=== PATIENT | female | born 1975 | race Caucasian/White ===

== ENCOUNTER 2018-11-26 13:52 | Emergency (ER) | payer OTHER, SELFPAY ==
[2018-11-26 13:56] VITALS: BP 126/88; PULSE 112; RESP 18; TEMP 37.4; O2SAT 100
--- NOTE | 2018-11-26 14:02 | ED.ABDPAIN ---
HPI - Abdominal Pain <FRANCOIS Anglin - Last Filed: 11/26/18 22:02> General Chief Complaint: Abdominal Pain Stated Complaint: doctor wants to R/O diverticulitis Time Seen by Provider: 11/26/18 14:02 Source: patient Mode of arrival: ambulatory Limitations: no limitations History of Present Illness HPI narrative: 43-year-old healthy female that is a nonsmoker for complaint of pain into her abdomen over the past 4-5 days. Pain is above her umbilicus and does not radiate. She denies any trauma to the area. No nausea vomiting. Positive p.o. intake. She does report having a decreased appetite however though. Last bowel movement was earlier today and was loose. She denies any urinary symptoms. No flank pain. No other concerns or complaints this timeframe. Related Data Home Medications Medication Instructions Recorded Confirmed acetaminophen [Acetaminophen Extra 500 mg PO Q4H PRN 11/26/18 11/26/18 Strength] Allergies Allergy/AdvReac Type Severity Reaction Status Date / Time No Known Drug Allergies Allergy Verified 11/26/18 13:58 Review of Systems <FRANCOIS Anglin - Last Filed: 11/26/18 22:02> Constitutional Denies chills, Denies fever(s), Denies lethargy and Denies weakness Eyes Denies change in vision, Denies eye discharge, Denies irritation and Denies loss of vision ENT Ears, Nose, Mouth, and Throat: Denies change in voice, Denies neck pain and Denies sore throat Cardiovascular Denies chest pain, Denies irregular heart rhythm, Denies lightheadedness, Denies palpitations, Denies dyspnea, Denies dyspnea on exertion and Denies orthopnea Respiratory Denies cough, Denies dyspnea, Denies dyspnea on exertion and Denies wheezing Gastrointestinal Gastrointestinal: Reports abdominal pain Genitourinary Denies hematuria, Denies flank pain, Denies urinary incontinence and Denies urinary urgency Musculoskeletal Denies neck pain Integumentary/Breasts Denies pruritus, Denies erythema, Denies rash and Denies wounds Neurologic Denies confusion, Denies loss of vision and Denies weakness Psychiatric Denies anxiety, Denies confusion, Denies depression, Denies homicidal ideation and Denies suicidal ideation Endocrine Denies palpitations Hematologic/Lymphatic Denies easy bruising Allergic/Immunologic Denies wheezing Exam <FRANCOIS Anglin - Last Filed: 11/26/18 22:02> Initial Vital Signs Initial Vital Signs: Vital Signs Temperature 99.4 F 11/26/18 13:56 Pulse Rate 112 H 11/26/18 13:56 Respiratory Rate 18 11/26/18 13:56 Blood Pressure 126/88 11/26/18 13:56 Pulse Oximetry 100 11/26/18 13:56 Const General: cooperative and well developed Nutritional Appearance: well nourished Orientation: alert, awake, oriented x3 and not confused HENPR Mouth: oral mucosae normal and mucous membranes abnormal Eyes Conjunctivae: conjunctivae normal Sclera: sclerae normal Pupils: PERRL EOM: EOM intact bilaterally Resp Effort & Inspection: normal respiratory effort, able to speak in complete sentences, no respiratory distress and no use of accessory muscles Auscultation: clear to auscultation bilaterally, no rales, no rhonchi and no wheezes Cardio Rate: regular rate Rhythm: regular rhythm Heart Sounds: no click, no gallops, no murmurs and no rubs Pulses: normal peripheral pulses GI Inspection: non-distended Palpation: soft, no hepatosplenomegaly, No guarding, No pulsatile mass and No tender Auscultation: normal bowel sounds General: No CVA tenderness Neuro General: alert, oriented x3, gait normal and no focal motor deficits Speech: speech normal <Gala Solis DO - Last Filed: 11/30/18 18:57> Initial Vital Signs Initial Vital Signs: Vital Signs Temperature 99.4 F 11/26/18 13:56 Pulse Rate 112 H 11/26/18 13:56 Respiratory Rate 18 11/26/18 13:56 Blood Pressure 126/88 11/26/18 13:56 Pulse Oximetry 100 11/26/18 13:56 Course <FRANCOIS Anglin - Last Filed: 11/26/18 22:02> Orders Ordered: Discontinued Medications Sodium Chloride (Normal Saline 0.9%) 500 mls @ 1,000 mls/hr IV BOLUS ONE Stop: 11/26/18 14:56 Last Admin: 11/26/18 14:45 Dose: Sodium Chloride (Normal Saline 0.9%) 1,000 mls @ 1,000 mls/hr IV BOLUS ONE Stop: 11/26/18 15:43 Last Infusion: 11/26/18 16:04 Dose: 0 mls/hr Admin: 11/26/18 14:45 Dose: 1,000 mls/hr Sodium Chloride (Normal Saline 0.9%) 1,000 mls @ 1,000 mls/hr IV BOLUS ONE Stop: 11/26/18 17:45 Last Infusion: 11/26/18 17:56 Dose: 0 mls/hr Admin: 11/26/18 16:49 Dose: 1,000 mls/hr Ketorolac Tromethamine (Toradol) 30 mg IV NOW ONE Stop: 11/26/18 16:47 Last Admin: 11/26/18 16:49 Dose: 30 mg Vital Signs - 8 hr 11/26/18 15:55 11/26/18 16:49 11/26/18 16:53 Temperature 102.1 F H 102.1 F H Pulse Rate 113 H 107 H Respiratory Rate 17 18 Blood Pressure Blood Pressure [Left Arm] 105/68 111/98 H Pulse Oximetry 100 100 11/26/18 17:26 11/26/18 17:56 Temperature 101.1 F H Pulse Rate 104 H Respiratory Rate 15 Blood Pressure 115/72 Blood Pressure [Left Arm] Pulse Oximetry 99 <Gala Solis, - Last Filed: 11/30/18 18:57> Orders Ordered: Discontinued Medications Sodium Chloride (Normal Saline 0.9%) 500 mls @ 1,000 mls/hr IV BOLUS ONE Stop: 11/26/18 14:56 Last Admin: 11/26/18 14:45 Dose: Sodium Chloride (Normal Saline 0.9%) 1,000 mls @ 1,000 mls/hr IV BOLUS ONE Stop: 11/26/18 15:43 Last Infusion: 11/26/18 16:04 Dose: 0 mls/hr Admin: 11/26/18 14:45 Dose: 1,000 mls/hr Sodium Chloride (Normal Saline 0.9%) 1,000 mls @ 1,000 mls/hr IV BOLUS ONE Stop: 11/26/18 17:45 Last Infusion: 11/26/18 17:56 Dose: 0 mls/hr Admin: 11/26/18 16:49 Dose: 1,000 mls/hr Ketorolac Tromethamine (Toradol) 30 mg IV NOW ONE Stop: 11/26/18 16:47 Last Admin: 11/26/18 16:49 Dose: 30 mg Vital Signs - 8 hr 11/26/18 15:55 11/26/18 16:49 11/26/18 16:53 Temperature 102.1 F H 102.1 F H Pulse Rate 113 H 107 H Respiratory Rate 17 18 Blood Pressure Blood Pressure [Left Arm] 105/68 111/98 H Pulse Oximetry 100 100 11/26/18 17:26 11/26/18 17:56 Temperature 101.1 F H Pulse Rate 104 H Respiratory Rate 15 Blood Pressure 115/72 Blood Pressure [Left Arm] Pulse Oximetry 99 MDM - Abdominal Pain <FRANCOIS Anglin - Last Filed: 11/26/18 22:02> Differential Diagnosis Differential diagnosis: Likely abdominal pain Lab Data Result diagrams: 11/26/18 14:40 11/26/18 14:40 Lab Results 11/26/18 11/26/18 Range/Units 14:40 14:40 WBC 5.2 (4.5-11.0) X10^3/uL RBC 4.86 (4.0-5.2) X10^6/uL Hgb 13.9 (12.0-16.0) g/dL Hct 41.2 (36-46) % MCV 84.8 (80-100) fL MCH 28.6 (26-34) PG MCHC 33.8 (30-36) % RDW 13.7 (11.6-14.8) % Plt Count 234 (150-400) X10^3/uL Neut % (Auto) 76.3 H (50-75) % Lymph % (Auto) 12.9 L (25-40) % [place] % (Auto) 10.2 (3-14) % Eos % (Auto) 0.1 L (2-4) % Baso % (Auto) 0.5 (0-2) % Neut # (Auto) 4000 (2117-7598) /uL Lymph # (Auto) 700 L (0879-2418) /uL [place] # (Auto) 500 (0-900) /uL Eos # (Auto) 0 (0-450) /uL Baso # (Auto) 0 (0-100) /uL Sodium 137 (137-145) mmol/L Potassium 3.3 L (3.4-5.1) mmol/L Chloride 101 (98-107) mmol/L Carbon Dioxide 26 (22-32) mmol/L BUN 9 (7-17) mg/dL Creatinine 0.60 (0.52-1.04) mg/dL Estimated GFR > 60.0 (>60) mL/min BUN/Creatinine Ratio 15.0 (6-22) Glucose 93 (70-100) mg/dL Calcium 9.0 (8.4-10.2) mg/dL Total Bilirubin 0.4 (0.2-1.3) mg/dL AST 27 (14-36) IU/L ALT 27 (9-52) IU/L Alkaline Phosphatase 77 (38-126) U/L Total Protein 7.4 (6.3-8.2) g/dL Albumin 4.3 (3.5-5.0) g/dL Globulin 3.1 (1.7-4.1) g/dL Albumin/Globulin Ratio 1.4 (1.0-2.8) Lipase 70 (23-300) U/L Point of care testing: Urine Dip Bedside Urine Glucose Negative Bedside Urine Bilirubin - Negative Bedside Urine Ketone + 15 Urine Specific Chambers 1.010 Bedside Urine Protein +/- 15 Bedside Urine Urobilinogen - Negative Bedside Urine Nitrite - Negative Bedside Urine Leukocytes - Negative Esterase Imaging Data CT scan - abdomen: Radiologist's impression: [facility] [place] [id number] CT Scan Report Signed Patient: Laura Cunningham#: [id number] : 1975Acct:[id number] Age/Sex: 43 / FDate of Service: 11/26/18 Loc: ED Accession Number: [id number] Procedure: CT abdomen pelvis w con Ordering Provider: Erick Garg PROCEDURE: CT ABDOMEN PELVIS W CON INDICATIONS: Pain to umbilical area TECHNIQUE: After the administration of intravenous contrast, 5 mm thick sections acquired from the diaphragm to the symphysis. 5 mm coronal and sagittal reformats were acquired. For radiation dose reduction, the following was used: automated exposure control, adjustment of mA and/or kV according to patient size. COMPARISON: None. FINDINGS: Image quality: Excellent. ABDOMEN: Lung bases: Lung bases are clear. Heart size is normal. Solid organs: Liver is normal in size and enhancement. Gallbladder is normal. Biliary system is non dilated. Pancreas enhances normally. Spleen is normal in size and enhancement. No adrenal nodules. Kidneys demonstrate normal size and enhancement, without hydronephrosis. Peritoneum and bowel: The base of the appendix measures 8 mm. There is air within the lumen of the tip of the appendix. No peritoneal stranding. Bowel loops demonstrate normal wall thickness and caliber. No free fluid or air. Nodes and vessels: No retroperitoneal or mesenteric adenopathy by size criteria. Aorta and inferior vena cava are normal in size. Miscellaneous: A tiny fat-containing umbilical hernia is noted with mild subtle stranding. PELVIS: Genitourinary: Bladder wall thickness is normal. There is is normal. There are follicle cysts in ovaries. No pathological free fluid in cul-de-sac. Miscellaneous: No inguinal hernias or adenopathy. Bones: No suspicious bony lesions. No vertebral body compression fractures. IMPRESSION: 1. The appendix is slightly enlarged measuring 8 mm (normal 7 mm or less). There is no periappendiceal fat stranding. There is air within the tip of the appendix. The clinical significance of the CT findings is indeterminate. Appendicitis unlikely but not entirely excluded. Recommend clinical correlation. 2. Tiny fat-containing umbilical hernia with mild subtle stranding which is nonspecific. Dictated by: Viktor Rios M.D. on 11/26/2018 at 15:50 Approved by: Viktor Rios M.D. on 11/26/2018 at 16:00 [facility] Narrative Medical decision making narrative: CBC and Chem panel were obtained were unremarkable. Lipase was normal. CT of the abdomen was obtained and was negative for any acute findings other than large appendix with no fat stranding. Does not present as appendicitis patient is not painful to her right lower quadrant area. Urinalysis was negative for urinary tract infection. Patient developed a fever while in the emergency room. She was treated with fluids and Toradol. Signs and symptoms presents as a viral illness. Follow up with primary care provider in the next few days for re-evaluation. For any worsening symptoms return emergency room. <Gala Solis, - Last Filed: 11/30/18 18:57> Lab Data Lab Results 11/26/18 11/26/18 Range/Units 14:40 14:40 WBC 5.2 (4.5-11.0) X10^3/uL RBC 4.86 (4.0-5.2) X10^6/uL Hgb 13.9 (12.0-16.0) g/dL Hct 41.2 (36-46) % MCV 84.8 (80-100) fL MCH 28.6 (26-34) PG MCHC 33.8 (30-36) % RDW 13.7 (11.6-14.8) % Plt Count 234 (150-400) X10^3/uL Neut % (Auto) 76.3 H (50-75) % Lymph % (Auto) 12.9 L (25-40) % [place] % (Auto) 10.2 (3-14) % Eos % (Auto) 0.1 L (2-4) % Baso % (Auto) 0.5 (0-2) % Neut # (Auto) 4000 (2835-6650) /uL Lymph # (Auto) 700 L (7800-6336) /uL [place] # (Auto) 500 (0-900) /uL Eos # (Auto) 0 (0-450) /uL Baso # (Auto) 0 (0-100) /uL Sodium 137 (137-145) mmol/L Potassium 3.3 L (3.4-5.1) mmol/L Chloride 101 (98-107) mmol/L Carbon Dioxide 26 (22-32) mmol/L BUN 9 (7-17) mg/dL Creatinine 0.60 (0.52-1.04) mg/dL Estimated GFR > 60.0 (>60) mL/min BUN/Creatinine Ratio 15.0 (6-22) Glucose 93 (70-100) mg/dL Calcium 9.0 (8.4-10.2) mg/dL Total Bilirubin 0.4 (0.2-1.3) mg/dL AST 27 (14-36) IU/L ALT 27 (9-52) IU/L Alkaline Phosphatase 77 (38-126) U/L Total Protein 7.4 (6.3-8.2) g/dL Albumin 4.3 (3.5-5.0) g/dL Globulin 3.1 (1.7-4.1) g/dL Albumin/Globulin Ratio 1.4 (1.0-2.8) Lipase 70 (23-300) U/L Point of care testing: Urine Dip Bedside Urine Glucose Negative Bedside Urine Bilirubin - Negative Bedside Urine Ketone + 15 Urine Specific Chambers 1.010 Bedside Urine Protein +/- 15 Bedside Urine Urobilinogen - Negative Bedside Urine Nitrite - Negative Bedside Urine Leukocytes - Negative Esterase Discharge Plan Departure Patient Disposition: Home Clinical Impression: Abdominal pain Discharge Date/Time: 11/26/18 17:57 Interventions: ED Discharge Assessment Last Done: 11/26/18 17:56 Activity Restrictions/Additional Instructions: Laboratory results today were unremarkable. CT scan of the abdomen was negative for any acute findings. Signs and symptoms presents as a viral illness. Use [id number] Tylenol or Motrin as needed for discomfort and fever. Plenty of fluids. Follow up with primary care provider next few days for re-evaluation. For any worsening symptoms return to the emergency room. Prescriptions: No Action acetaminophen [Acetaminophen Extra Strength] 500 mg Tablet 500 mg PO Q4H PRN (Reason: Fever) RF: 0 Referrals: Inez Islas DO [Primary Care Provider] - <Gala Solis DO - Last Filed: 11/30/18 18:57> Cosign ED Attending Cosignature Attestation: I was immediately available in the department for consultation. Documentation has been reviewed. I agree with assessment and plan.
--- NOTE | 2018-11-26 14:28 | DI.CT.S_ITS ---
PROCEDURE: CT ABDOMEN PELVIS W CON INDICATIONS: Pain to umbilical area TECHNIQUE: After the administration of intravenous contrast, 5 mm thick sections acquired from the diaphragm to the symphysis. 5 mm coronal and sagittal reformats were acquired. For radiation dose reduction, the following was used: automated exposure control, adjustment of mA and/or kV according to patient size. COMPARISON: None. FINDINGS: Image quality: Excellent. ABDOMEN: Lung bases: Lung bases are clear. Heart size is normal. Solid organs: Liver is normal in size and enhancement. Gallbladder is normal. Biliary system is non dilated. Pancreas enhances normally. Spleen is normal in size and enhancement. No adrenal nodules. Kidneys demonstrate normal size and enhancement, without hydronephrosis. Peritoneum and bowel: The base of the appendix measures 8 mm. There is air within the lumen of the tip of the appendix. No peritoneal stranding. Bowel loops demonstrate normal wall thickness and caliber. No free fluid or air. Nodes and vessels: No retroperitoneal or mesenteric adenopathy by size criteria. Aorta and inferior vena cava are normal in size. Miscellaneous: A tiny fat-containing umbilical hernia is noted with mild subtle stranding. PELVIS: Genitourinary: Bladder wall thickness is normal. There is is normal. There are follicle cysts in ovaries. No pathological free fluid in cul-de-sac. Miscellaneous: No inguinal hernias or adenopathy. Bones: No suspicious bony lesions. No vertebral body compression fractures. IMPRESSION: 1. The appendix is slightly enlarged measuring 8 mm (normal 7 mm or less). There is no periappendiceal fat stranding. There is air within the tip of the appendix. The clinical significance of the CT findings is indeterminate. Appendicitis unlikely but not entirely excluded. Recommend clinical correlation. 2. Tiny fat-containing umbilical hernia with mild subtle stranding which is nonspecific. Dictated by: Viktor Rios M.D. on 11/26/2018 at 15:50 Approved by: Viktor Rios M.D. on 11/26/2018 at 16:00
[2018-11-26] MEDS: SODIUM CHLORIDE 0.9% 1,000 ML 1000 ML IV ×2 (14:45→16:49)
[2018-11-26 14:47] LABS: Add Manual Diff / Slide Review NO; Basophils Absolute Auto 0 /uL (0-100); Basophils Percent Auto 0.5 % (0-2); Eosinophils Absolute Auto 0 /uL (0-450); Eosinophils Percent Auto 0.1 % (2-4); Hematocrit 41.2 % (36-46); Hemoglobin 13.9 g/dL (12.0-16.0); Lymphocytes Absolute Auto 700 /uL (1100-4500); Lymphocytes Percent Auto 12.9 % (25-40); Mean Corpuscular HGB Conc 33.8 % (30-36); Mean Corpuscular Hemoglobin 28.6 PG (26-34); Mean Corpuscular Volume 84.8 fL (80-100); Monocytes Absolute Auto 500 /uL (0-900); Monocytes Percent Auto 10.2 % (3-14); Neutrophils Absolute Auto 4000 /uL (1500-7000); Neutrophils Percent Auto 76.3 % (50-75); Platelet Count 234 X10^3/uL (150-400); Red Blood Cell Count 4.86 X10^6/uL (4.0-5.2); Red Cell Distribution Width 13.7 % (11.6-14.8); White Blood Cell Count 5.2 X10^3/uL (4.5-11.0)
[2018-11-26 15:03] LABS: Alanine Aminotransferase 27 IU/L (9-52); Albumin 4.3 g/dL (3.5-5.0); Albumin Globulin Ratio 1.4 (1.0-2.8); Alkaline Phosphatase 77 U/L (38-126); Aspartate Aminotransferase 27 IU/L (14-36); Bilirubin Total 0.4 mg/dL (0.2-1.3); Blood Urea Nitrogen 9 mg/dL (7-17); Carbon Dioxide 26 mmol/L (22-32); Chloride 101 mmol/L (98-107); Estimated Glomerular Filt Rate > 60.0 mL/min (>60); Globulin 3.1 g/dL (1.7-4.1); Glucose 93 mg/dL (70-100); HEMOLYSIS < 15 (0-50); Lipase 70 U/L (23-300); Potassium 3.3 mmol/L (3.4-5.1); Sodium 137 mmol/L (137-145); Total Protein 7.4 g/dL (6.3-8.2)
[2018-11-26 15:55] VITALS: BP 105/68; PULSE 113; RESP 17; O2SAT 100
[2018-11-26 16:49] VITALS: TEMP 38.9
[2018-11-26] MEDS: KETOROLAC 60 MG/2 ML VIAL 30 MG IV (16:49)
--- NOTE | 2018-11-26 16:52 | ED_ITS ---
HPI - Abdominal Pain <FRANCOIS Anglin - Last Filed: 11/26/18 22:02> General Chief Complaint: Abdominal Pain Stated Complaint: doctor wants to R/O diverticulitis Time Seen by Provider: 11/26/18 14:02 Source: patient Mode of arrival: ambulatory Limitations: no limitations History of Present Illness HPI narrative: 43-year-old healthy female that is a nonsmoker for complaint of pain into her abdomen over the past 4-5 days. Pain is above her umbilicus and does not radiate. She denies any trauma to the area. No nausea vomiting. Positive p.o. intake. She does report having a decreased appetite however though. Last bowel movement was earlier today and was loose. She denies any urinary symptoms. No flank pain. No other concerns or complaints this timeframe. Related Data Home Medications Medication Instructions Recorded Confirmed acetaminophen [Acetaminophen Extra 500 mg PO Q4H PRN 11/26/18 11/26/18 Strength] Allergies Allergy/AdvReac Type Severity Reaction Status Date / Time No Known Drug Allergies Allergy Verified 11/26/18 13:58 Review of Systems <FRANCOIS Anglin - Last Filed: 11/26/18 22:02> Constitutional Denies chills, Denies fever(s), Denies lethargy and Denies weakness Eyes Denies change in vision, Denies eye discharge, Denies irritation and Denies loss of vision ENT Ears, Nose, Mouth, and Throat: Denies change in voice, Denies neck pain and Denies sore throat Cardiovascular Denies chest pain, Denies irregular heart rhythm, Denies lightheadedness, Denies palpitations, Denies dyspnea, Denies dyspnea on exertion and Denies orthopnea Respiratory Denies cough, Denies dyspnea, Denies dyspnea on exertion and Denies wheezing Gastrointestinal Gastrointestinal: Reports abdominal pain Genitourinary Denies hematuria, Denies flank pain, Denies urinary incontinence and Denies urinary urgency Musculoskeletal Denies neck pain Integumentary/Breasts Denies pruritus, Denies erythema, Denies rash and Denies wounds Neurologic Denies confusion, Denies loss of vision and Denies weakness Psychiatric Denies anxiety, Denies confusion, Denies depression, Denies homicidal ideation and Denies suicidal ideation Endocrine Denies palpitations Hematologic/Lymphatic Denies easy bruising Allergic/Immunologic Denies wheezing Exam <FRANCOIS Anglin - Last Filed: 11/26/18 22:02> Initial Vital Signs Initial Vital Signs: Vital Signs Temperature 99.4 F 11/26/18 13:56 Pulse Rate 112 H 11/26/18 13:56 Respiratory Rate 18 11/26/18 13:56 Blood Pressure 126/88 11/26/18 13:56 Pulse Oximetry 100 11/26/18 13:56 Const General: cooperative and well developed Nutritional Appearance: well nourished Orientation: alert, awake, oriented x3 and not confused HENPA Mouth: oral mucosae normal and mucous membranes abnormal Eyes Conjunctivae: conjunctivae normal Sclera: sclerae normal Pupils: PERRL EOM: EOM intact bilaterally Resp Effort & Inspection: normal respiratory effort, able to speak in complete sentences, no respiratory distress and no use of accessory muscles Auscultation: clear to auscultation bilaterally, no rales, no rhonchi and no wheezes Cardio Rate: regular rate Rhythm: regular rhythm Heart Sounds: no click, no gallops, no murmurs and no rubs Pulses: normal peripheral pulses GI Inspection: non-distended Palpation: soft, no hepatosplenomegaly, No guarding, No pulsatile mass and No tender Auscultation: normal bowel sounds General: No CVA tenderness Neuro General: alert, oriented x3, gait normal and no focal motor deficits Speech: speech normal <Gala Solis DO - Last Filed: 11/30/18 18:57> Initial Vital Signs Initial Vital Signs: Vital Signs Temperature 99.4 F 11/26/18 13:56 Pulse Rate 112 H 11/26/18 13:56 Respiratory Rate 18 11/26/18 13:56 Blood Pressure 126/88 11/26/18 13:56 Pulse Oximetry 100 11/26/18 13:56 Course <FRANCOIS Anglin - Last Filed: 11/26/18 22:02> Orders Ordered: Discontinued Medications Sodium Chloride (Normal Saline 0.9%) 500 mls @ 1,000 mls/hr IV BOLUS ONE Stop: 11/26/18 14:56 Last Admin: 11/26/18 14:45 Dose: Sodium Chloride (Normal Saline 0.9%) 1,000 mls @ 1,000 mls/hr IV BOLUS ONE Stop: 11/26/18 15:43 Last Infusion: 11/26/18 16:04 Dose: 0 mls/hr Admin: 11/26/18 14:45 Dose: 1,000 mls/hr Sodium Chloride (Normal Saline 0.9%) 1,000 mls @ 1,000 mls/hr IV BOLUS ONE Stop: 11/26/18 17:45 Last Infusion: 11/26/18 17:56 Dose: 0 mls/hr Admin: 11/26/18 16:49 Dose: 1,000 mls/hr Ketorolac Tromethamine (Toradol) 30 mg IV NOW ONE Stop: 11/26/18 16:47 Last Admin: 11/26/18 16:49 Dose: 30 mg Vital Signs - 8 hr 11/26/18 15:55 11/26/18 16:49 11/26/18 16:53 Temperature 102.1 F H 102.1 F H Pulse Rate 113 H 107 H Respiratory Rate 17 18 Blood Pressure Blood Pressure [Left Arm] 105/68 111/98 H Pulse Oximetry 100 100 11/26/18 17:26 11/26/18 17:56 Temperature 101.1 F H Pulse Rate 104 H Respiratory Rate 15 Blood Pressure 115/72 Blood Pressure [Left Arm] Pulse Oximetry 99 <Gala Solis, - Last Filed: 11/30/18 18:57> Orders Ordered: Discontinued Medications Sodium Chloride (Normal Saline 0.9%) 500 mls @ 1,000 mls/hr IV BOLUS ONE Stop: 11/26/18 14:56 Last Admin: 11/26/18 14:45 Dose: Sodium Chloride (Normal Saline 0.9%) 1,000 mls @ 1,000 mls/hr IV BOLUS ONE Stop: 11/26/18 15:43 Last Infusion: 11/26/18 16:04 Dose: 0 mls/hr Admin: 11/26/18 14:45 Dose: 1,000 mls/hr Sodium Chloride (Normal Saline 0.9%) 1,000 mls @ 1,000 mls/hr IV BOLUS ONE Stop: 11/26/18 17:45 Last Infusion: 11/26/18 17:56 Dose: 0 mls/hr Admin: 11/26/18 16:49 Dose: 1,000 mls/hr Ketorolac Tromethamine (Toradol) 30 mg IV NOW ONE Stop: 11/26/18 16:47 Last Admin: 11/26/18 16:49 Dose: 30 mg Vital Signs - 8 hr 11/26/18 15:55 11/26/18 16:49 11/26/18 16:53 Temperature 102.1 F H 102.1 F H Pulse Rate 113 H 107 H Respiratory Rate 17 18 Blood Pressure Blood Pressure [Left Arm] 105/68 111/98 H Pulse Oximetry 100 100 11/26/18 17:26 11/26/18 17:56 Temperature 101.1 F H Pulse Rate 104 H Respiratory Rate 15 Blood Pressure 115/72 Blood Pressure [Left Arm] Pulse Oximetry 99 MDM - Abdominal Pain <FRANCOIS Anglin - Last Filed: 11/26/18 22:02> Differential Diagnosis Differential diagnosis: Likely abdominal pain Lab Data Result diagrams: 11/26/18 14:40 11/26/18 14:40 Lab Results 11/26/18 11/26/18 Range/Units 14:40 14:40 WBC 5.2 (4.5-11.0) X10^3/uL RBC 4.86 (4.0-5.2) X10^6/uL Hgb 13.9 (12.0-16.0) g/dL Hct 41.2 (36-46) % MCV 84.8 (80-100) fL MCH 28.6 (26-34) PG MCHC 33.8 (30-36) % RDW 13.7 (11.6-14.8) % Plt Count 234 (150-400) X10^3/uL Neut % (Auto) 76.3 H (50-75) % Lymph % (Auto) 12.9 L (25-40) % [place] % (Auto) 10.2 (3-14) % Eos % (Auto) 0.1 L (2-4) % Baso % (Auto) 0.5 (0-2) % Neut # (Auto) 4000 (5170-3039) /uL Lymph # (Auto) 700 L (4069-5200) /uL [place] # (Auto) 500 (0-900) /uL Eos # (Auto) 0 (0-450) /uL Baso # (Auto) 0 (0-100) /uL Sodium 137 (137-145) mmol/L Potassium 3.3 L (3.4-5.1) mmol/L Chloride 101 (98-107) mmol/L Carbon Dioxide 26 (22-32) mmol/L BUN 9 (7-17) mg/dL Creatinine 0.60 (0.52-1.04) mg/dL Estimated GFR > 60.0 (>60) mL/min BUN/Creatinine Ratio 15.0 (6-22) Glucose 93 (70-100) mg/dL Calcium 9.0 (8.4-10.2) mg/dL Total Bilirubin 0.4 (0.2-1.3) mg/dL AST 27 (14-36) IU/L ALT 27 (9-52) IU/L Alkaline Phosphatase 77 (38-126) U/L Total Protein 7.4 (6.3-8.2) g/dL Albumin 4.3 (3.5-5.0) g/dL Globulin 3.1 (1.7-4.1) g/dL Albumin/Globulin Ratio 1.4 (1.0-2.8) Lipase 70 (23-300) U/L Point of care testing: Urine Dip Bedside Urine Glucose Negative Bedside Urine Bilirubin - Negative Bedside Urine Ketone + 15 Urine Specific [place] 1.010 Bedside Urine Protein +/- 15 Bedside Urine Urobilinogen - Negative Bedside Urine Nitrite - Negative Bedside Urine Leukocytes - Negative Esterase Imaging Data CT scan - abdomen: Radiologist's impression: [facility] [place] [id number] CT Scan Report Signed Patient: Laura Cunningham#: [id number] : 1975Acct:[id number] Age/Sex: 43 / FDate of Service: 11/26/18 Loc: ED Accession Number: [id number] Procedure: CT abdomen pelvis w con Ordering Provider: Erick Garg PROCEDURE: CT ABDOMEN PELVIS W CON INDICATIONS: Pain to umbilical area TECHNIQUE: After the administration of intravenous contrast, 5 mm thick sections acquired from the diaphragm to the symphysis. 5 mm coronal and sagittal reformats were acquired. For radiation dose reduction, the following was used: automated exposure control, adjustment of mA and/or kV according to patient size. COMPARISON: None. FINDINGS: Image quality: Excellent. ABDOMEN: Lung bases: Lung bases are clear. Heart size is normal. Solid organs: Liver is normal in size and enhancement. Gallbladder is normal. Biliary system is non dilated. Pancreas enhances normally. Spleen is normal in size and enhancement. No adrenal nodules. Kidneys demonstrate normal size and enhancement, without hydronephrosis. Peritoneum and bowel: The base of the appendix measures 8 mm. There is air within the lumen of the tip of the appendix. No peritoneal stranding. Bowel loops demonstrate normal wall thickness and caliber. No free fluid or air. Nodes and vessels: No retroperitoneal or mesenteric adenopathy by size criteria. Aorta and inferior vena cava are normal in size. Miscellaneous: A tiny fat-containing umbilical hernia is noted with mild subtle stranding. PELVIS: Genitourinary: Bladder wall thickness is normal. There is is normal. There are follicle cysts in ovaries. No pathological free fluid in cul-de-sac. Miscellaneous: No inguinal hernias or adenopathy. Bones: No suspicious bony lesions. No vertebral body compression fractures. IMPRESSION: 1. The appendix is slightly enlarged measuring 8 mm (normal 7 mm or less). There is no periappendiceal fat stranding. There is air within the tip of the appendix. The clinical significance of the CT findings is indeterminate. Appendicitis unlikely but not entirely excluded. Recommend clinical correlation. 2. Tiny fat-containing umbilical hernia with mild subtle stranding which is nonspecific. Dictated by: Viktor Rios M.D. on 11/26/2018 at 15:50 Approved by: Viktor Rios M.D. on 11/26/2018 at 16:00 [facility] Narrative Medical decision making narrative: CBC and Chem panel were obtained were unremarkable. Lipase was normal. CT of the abdomen was obtained and was negative for any acute findings other than large appendix with no fat stranding. Does not present as appendicitis patient is not painful to her right lower quadrant area. Urinalysis was negative for urinary tract infection. Patient developed a fever while in the emergency room. She was treated with fluids and Toradol. Signs and symptoms presents as a viral illness. Follow up with primary care provider in the next few days for re- evaluation. For any worsening symptoms return emergency room. <Gala Solis, - Last Filed: 11/30/18 18:57> Lab Data Lab Results 11/26/18 11/26/18 Range/Units 14:40 14:40 WBC 5.2 (4.5-11.0) X10^3/uL RBC 4.86 (4.0-5.2) X10^6/uL Hgb 13.9 (12.0-16.0) g/dL Hct 41.2 (36-46) % MCV 84.8 (80-100) fL MCH 28.6 (26-34) PG MCHC 33.8 (30-36) % RDW 13.7 (11.6-14.8) % Plt Count 234 (150-400) X10^3/uL Neut % (Auto) 76.3 H (50-75) % Lymph % (Auto) 12.9 L (25-40) % [place] % (Auto) 10.2 (3-14) % Eos % (Auto) 0.1 L (2-4) % Baso % (Auto) 0.5 (0-2) % Neut # (Auto) 4000 (7990-2081) /uL Lymph # (Auto) 700 L (2576-7949) /uL [place] # (Auto) 500 (0-900) /uL Eos # (Auto) 0 (0-450) /uL Baso # (Auto) 0 (0-100) /uL Sodium 137 (137-145) mmol/L Potassium 3.3 L (3.4-5.1) mmol/L Chloride 101 (98-107) mmol/L Carbon Dioxide 26 (22-32) mmol/L BUN 9 (7-17) mg/dL Creatinine 0.60 (0.52-1.04) mg/dL Estimated GFR > 60.0 (>60) mL/min BUN/Creatinine Ratio 15.0 (6-22) Glucose 93 (70-100) mg/dL Calcium 9.0 (8.4-10.2) mg/dL Total Bilirubin 0.4 (0.2-1.3) mg/dL AST 27 (14-36) IU/L ALT 27 (9-52) IU/L Alkaline Phosphatase 77 (38-126) U/L Total Protein 7.4 (6.3-8.2) g/dL Albumin 4.3 (3.5-5.0) g/dL Globulin 3.1 (1.7-4.1) g/dL Albumin/Globulin Ratio 1.4 (1.0-2.8) Lipase 70 (23-300) U/L Point of care testing: Urine Dip Bedside Urine Glucose Negative Bedside Urine Bilirubin - Negative Bedside Urine Ketone + 15 Urine Specific [place] 1.010 Bedside Urine Protein +/- 15 Bedside Urine Urobilinogen - Negative Bedside Urine Nitrite - Negative Bedside Urine Leukocytes - Negative Esterase Discharge Plan Departure Patient Disposition: Home Clinical Impression: Abdominal pain Discharge Date/Time: 11/26/18 17:57 Interventions: ED Discharge Assessment Last Done: 11/26/18 17:56 Activity Restrictions/Additional Instructions: Laboratory results today were unremarkable. CT scan of the abdomen was negative for any acute findings. Signs and symptoms presents as a viral illness. Use [id number] Tylenol or Motrin as needed for discomfort and fever. Plenty of fluids. Follow up with primary care provider next few days for re- evaluation. For any worsening symptoms return to the emergency room. Prescriptions: No Action acetaminophen [Acetaminophen Extra Strength] 500 mg Tablet 500 mg PO Q4H PRN (Reason: Fever) RF: 0 Referrals: Inez Islas DO [Primary Care Provider] - <Gala Solis DO - Last Filed: 11/30/18 18:57> Cosign ED Attending Cosignature Attestation: I was immediately available in the department for consultation. Documentation has been reviewed. I agree with assessment and plan.
[2018-11-26 16:53] VITALS: BP 111/98; PULSE 107; RESP 18; TEMP 38.9; O2SAT 100
[2018-11-26 17:26] VITALS: TEMP 38.4
[2018-11-26 17:56] VITALS: BP 115/72; PULSE 104; RESP 15; O2SAT 99
== END 2018-11-26 17:57 | disposition home or self-care (01) ==
PROVIDERS: Emergency Provider Nurse Practitioner Family; Family Provider Family Medicine; PCP Family Medicine
DX: R10.9 Unspecified abdominal pain (principal)
CPT/HCPCS: 36591; 74177; 80053; 81003; 83690; 85025; 96361; 96374; 99283; 99285; J1885; Q9967

== ENCOUNTER → 2021-06-11 09:45 | Outpatient (CLI) | payer OTHER, SELFPAY ==
[2021-06-11 10:17] LABS: Add Manual Diff / Slide Review NO; Basophils Absolute Auto 100 /uL (0-100); Basophils Percent Auto 2.1 % (0-2); Eosinophils Absolute Auto 100 /uL (0-450); Eosinophils Percent Auto 2.1 % (2-4); Hematocrit 39.1 % (36-46); Hemoglobin 13.2 g/dL (12.0-16.0); Lymphocytes Absolute Auto 1400 /uL (1100-4500); Lymphocytes Percent Auto 38.3 % (25-40); Mean Corpuscular HGB Conc 33.7 % (30-36); Mean Corpuscular Hemoglobin 29.4 PG (26-34); Mean Corpuscular Volume 87.1 fL (80-100); Monocytes Absolute Auto 300 /uL (0-900); Monocytes Percent Auto 8.5 % (3-14); Neutrophils Absolute Auto 1800 /uL (1500-7000); Platelet Count 238 X10^3/uL (150-400); Red Blood Cell Count 4.49 X10^6/uL (4.0-5.2); Red Cell Distribution Width 13.4 % (11.6-14.8); White Blood Cell Count 3.6 X10^3/uL (4.5-11.0)
[2021-06-11 11:05] LABS: Alanine Aminotransferase 17 IU/L (<35); Albumin 3.9 g/dL (3.5-5.0); Albumin Globulin Ratio 1.3 (1.0-2.8); Alkaline Phosphatase 54 U/L (38-126); Aspartate Aminotransferase 23 IU/L (14-36); BUN Creatinine Ratio 24.1 (6-22); Bilirubin Total 0.6 mg/dL (0.2-1.3); Blood Urea Nitrogen 13 mg/dL (7-17); Carbon Dioxide 27 mmol/L (22-32); Chloride 106 mmol/L (98-107); Cholesterol 150 mg/dL (140-199); Estimated Glomerular Filt Rate > 60.0 mL/min (>60); Globulin 2.9 g/dL (1.7-4.1); Glucose 91 mg/dL (70-100); HDL Cholesterol 48 mg/dL (40-60); HEMOLYSIS < 15 (0-50); LDL Cholesterol Calculated 88 mg/dL (<100); Potassium 3.8 mmol/L (3.4-5.1); Sodium 139 mmol/L (137-145); Total Protein 6.8 g/dL (6.3-8.2); Triglycerides 69 mg/dL (35-150)
[2021-06-11 11:22] LABS: TSH w/ Reflex to FT4 0.83 uIU/mL (0.47-4.68)
== END ==
PROVIDERS: Family Provider Family Medicine; PCP Registered Nurse; Referring Provider Registered Nurse; Visit Provider Registered Nurse
DX: R00.0 Tachycardia, unspecified (principal); Z82.49 Family history of ischemic heart disease and other diseases of the circulatory system
CPT/HCPCS: 36415; 80053; 80061; 84443; 85025

== ENCOUNTER → 2021-07-26 17:03 | Outpatient (CLI) | payer OTHER, SELFPAY ==
--- NOTE | 2021-07-26 17:03 | DI.MG.S_ITS ---
BILATERAL DIGITAL SCREENING MAMMOGRAM 3D/2D WITH CAD: 07/26/2021 CLINICAL: Routine screening. Family history of breast cancer. [facility] The tissue of both breasts is heterogeneously dense. This may lower the sensitivity of mammography. Current study was also evaluated with a Computer Aided Detection (CAD) system. There are new 0.8 cm grouped coarse calcifications in the right breast at 11 o'clock middle depth. Suggestion of possible associated asymmetry. No other significant masses, calcifications, or other findings are seen in either breast. IMPRESSION: INCOMPLETE: NEEDS ADDITIONAL IMAGING EVALUATION The new 0.8 cm grouped coarse calcifications with possible associated asymmetry in the right breast are indeterminate. Diagnostic mammogram for additional views to include mediolateral and spot magnification views with possible ultrasound are recommended. This exam was interpreted at Station ID: [id number]. NOTE: For mammograms, a report in lay terms will be sent to the patient. Approximately 15% of breast malignancies will not be visualized mammographically. In the management of a palpable breast mass, a negative mammogram must not discourage biopsy of a clinically suspicious lesion. Electronically Signed By: Nader Ortez M.D. aty/:07/27/2021 07:17:46 Entry: - 07/27/2021 08:13:21 letter sent: Additional Imaging Needed ACR BI-RADS Category 0: Incomplete 3340F
== END ==
PROVIDERS: Family Provider Family Medicine; PCP Registered Nurse; Referring Provider Registered Nurse; Visit Provider Registered Nurse
DX: Z12.31 Encounter for screening mammogram for malignant neoplasm of breast (principal)
CPT/HCPCS: 77063; 77067

== ENCOUNTER → 2021-08-23 13:24 | Outpatient (CLI) | payer OTHER, SELFPAY ==
--- NOTE | 2021-08-23 | DI.MG.S_ITS ---
UNILATERAL RIGHT DIGITAL DIAGNOSTIC MAMMOGRAM 3D/2D WITH ADDITIONAL VIEWS: 08/23/2021 CLINICAL: Additional evaluation requested from prior study. Comparison is made to exams dated: 07/26/2021 mammogram and 05/10/2016 [facility]ogram - [facility]. The tissue of right breast is heterogeneously dense. This may lower the sensitivity of mammography. There is a possible 0.5 cm asymmetry with fine calcifications in the right breast at 11 o'clock middle depth. No other significant masses or calcifications are seen in the breast. IMPRESSION: INCOMPLETE: NEEDS ADDITIONAL IMAGING EVALUATION The possible 0.5 cm asymmetry in the right breast is indeterminate. A targeted ultrasound is recommended and will immediately follow. This exam was interpreted at Station ID: [id number]. NOTE: For mammograms, a report in lay terms will be sent to the patient. Approximately 15% of breast malignancies will not be visualized mammographically. In the management of a palpable breast mass, a negative mammogram must not discourage biopsy of a clinically suspicious lesion. Electronically Signed By: Nicolas Sorto M.D. slc/:08/23/2021 15:48:05 ACR BI-RADS Category 0: Incomplete 3340F
--- NOTE | 2021-08-23 13:25 | DI.US.S_ITS ---
LIMITED ULTRASOUND OF RIGHT BREAST: 08/23/2021 CLINICAL: Patient returns today to evaluate a focal asymmetry in the right breast. Comparison is made to exams dated: 07/26/2021 mammogram, 08/23/2021 mammogram, and 05/10/2016 mammogram - [facility]. Real-time ultrasound of the right breast 10-11 o'clock region was performed. Greer scale images of the real-time examination were reviewed. No ultrasound correlate for possible asymmetry at 11:00 middle depth with fine calcifications. There is a 1.1 cm x 0.8 cm x 0.6 cm cluster of oval cysts in the right breast at 10 o'clock middle depth 3 cm from the nipple. This cluster of oval cysts is anechoic. This correlates as an incidental finding. Color flow imaging demonstrates that there is no vascularity present. There also is benign duct ectasia in the right breast at 9 o'clock in the retroareolar region. No significant abnormalities were seen sonographically in the right breast. IMPRESSION: SUSPICIOUS OF MALIGNANCY No ultrasound correlate for possible asymmetry at 11:00 middle depth with fine calcifications. -Recommend stereotactic biopsy of the calcifications. The 1.1 cm cluster of oval cysts in the right breast at 10 o'clock middle depth is probably benign. -A follow-up ultrasound in 6 months is recommended. The duct ectasia in the right breast at 9 o'clock in the retroareolar region is benign. Exam findings were discussed with the patient by Dr. Wisdom. This exam was interpreted at Station ID: [id number]. Electronically Signed By: Nicolas Sorto M.D. slc/:08/23/2021 15:56:21 letter sent: Biopsy Required Ultrasound BI-RADS: 4a Low suspicion for malignancy
== END ==
PROVIDERS: Family Provider Family Medicine; PCP Registered Nurse; Referring Provider Registered Nurse; Visit Provider Registered Nurse
DX: R92.1 Mammographic calcification found on diagnostic imaging of breast (principal)
CPT/HCPCS: 76642; 77065; G0279

== ENCOUNTER → 2022-08-15 13:31 | Outpatient (CLI) | payer OTHER, SELFPAY ==
--- NOTE | 2022-08-15 13:33 | DI.US.S_ITS ---
LIMITED ULTRASOUND OF RIGHT BREAST: 08/15/2022 CLINICAL: Patient returns today to evaluate a focal asymmetry in the right breast. Comparison is made to exams dated: 08/15/2022 mammogram - [facility], 08/29/2021 specimen, 08/29/2021 stereotactic biopsy - [facility], 08/23/2021 ultrasound, 08/23/2021 mammogram, and 07/26/2021 mammogram - [facility]. Color flow and real-time ultrasound of the right breast 10 o'clock region were performed. Previously demonstrated cyst cluster is stable. IMPRESSION: INCOMPLETE: NEEDS ADDITIONAL IMAGING EVALUATION There is no sonographic evidence of malignancy in the right breast. Previously visualized complicated cyst cluster is stable and benign. There are two new asymmetries in the left breast seen mammographically today which will need ultrasound follow-up. Please ensure that this is requested and scheduled. This exam was interpreted at Station ID: [id number]. Electronically Signed By: Enrrique Ashby M.D. jr/:08/16/2022 16:20:06 Entry: - 08/16/2022 16:20:06 Ultrasound BI-RADS: 0 Indeterminate
--- NOTE | 2022-08-15 13:33 | DI.MG.S_ITS ---
BILATERAL DIGITAL DIAGNOSTIC MAMMOGRAM 3D/2D SHORT-TERM FOLLOW-UP: 08/15/2022 CLINICAL: Short term follow up of the right breast, due for bilateral imaging. Comparison is made to exams dated: 08/23/2021 mammogram, 07/26/2021 mammogram, and 05/10/2016 mammogram - [facility]. Both breasts are heterogeneously dense, which may obscure small masses (category c / 51-75% glandular tissue). There is a stable 0.6 cm asymmetry in the right breast at 10 o'clock middle depth 3 cm from the nipple. There is a possible asymmetry in the left breast at 3 o'clock anterior depth. There also is a possible asymmetry in the left breast central to the nipple middle depth. No other significant masses or calcifications are seen in either breast. IMPRESSION: INCOMPLETE: NEEDS ADDITIONAL IMAGING EVALUATION Stable 0.6 cm asymmetry in the right breast at 10 o'clock middle depth previously demonstrated to be a cluster of cysts. An ultrasound was previously recommended to document stability and is being performed immediately after this exam. Two left breast asymmetries are new from prior exam. These both require ultrasound for further characterization. The patient was not scheduled for a left breast ultrasound today and the facility ([facility]) was reportedly unable to work the patient-in today. Please obtain an ultrasound of the left breast areas of concern as soon as reasonably possible. Based on the Tyrer Cuzick model (a risk assessment model) the patient's lifetime risk is 11.0% and her 10 year risk is 2.4%. According to the ACR, ACS, and NCCN guidelines, an annual breast MRI exam along with mammogram is recommended if the patient's lifetime risk is 20% or greater. This exam was interpreted at Station ID: [id number]. NOTE: For mammograms, a report in lay terms will be sent to the patient. Approximately 15% of breast malignancies will not be visualized mammographically. In the management of a palpable breast mass, a negative mammogram must not discourage biopsy of a clinically suspicious lesion. Electronically Signed By: Enrrique Ashby M.D. jr/:08/15/2022 14:12:29 letter sent: Additional Imaging Needed ACR BI-RADS Category 0: Incomplete 3340F
== END ==
PROVIDERS: Family Provider Family Medicine; PCP Nurse Practitioner; Referring Provider Nurse Practitioner; Visit Provider Nurse Practitioner
DX: R92.8 Other abnormal and inconclusive findings on diagnostic imaging of breast (principal); N60.01 Solitary cyst of right breast; N64.89 Other specified disorders of breast
CPT/HCPCS: 76642; 77066; G0279

== ENCOUNTER → 2022-08-27 07:46 | Outpatient (CLI) | payer OTHER, SELFPAY ==
--- NOTE | 2022-08-27 07:48 | DI.US.S_ITS ---
LIMITED ULTRASOUND OF LEFT BREAST AND AXILLA: 08/27/2022 CLINICAL: Patient returns today to evaluate two focal asymmetries in the left breast. Comparison is made to exams dated: 08/15/2022 mammogram, 07/26/2021 mammogram, and 05/10/2016 mammogram - [facility]. Color flow ultrasound of the left breast axilla was performed on the areas of interest. Greer scale images of the real-time examination were reviewed. There is a 1 cm oval cyst in the left breast central to the nipple middle depth. This oval cyst is anechoic with a well-defined boundary and posterior acoustic enhancement. This correlates with mammography findings. Color flow imaging demonstrates that there is no vascularity present. There also is a cluster of 2 oval cysts in the left breast at 2 o'clock anterior depth. These cysts are anechoic with well-defined boundaries and posterior acoustic enhancement. This correlates with mammography findings. Color flow imaging demonstrates that there is no vascularity present. IMPRESSION: BENIGN There is no sonographic evidence of malignancy. The 1 cm oval cyst in the left breast central to the nipple middle depth is consistent with a simple cyst and is benign. The cluster of oval cysts in the left breast at 2 o'clock anterior depth is consistent with two simple cysyts and are benign. Return to annual mammogram screening schedule is recommended. This exam was interpreted at Station ID: [id number]. Electronically Signed By: Catalina porras/:08/27/2022 08:45:34 letter sent: Normal Exam Ultrasound BI-RADS: 2 Benign
== END ==
PROVIDERS: Family Provider Family Medicine; PCP Nurse Practitioner; Referring Provider Nurse Practitioner; Visit Provider Nurse Practitioner
DX: R92.8 Other abnormal and inconclusive findings on diagnostic imaging of breast (principal); N60.02 Solitary cyst of left breast
CPT/HCPCS: 76642

== ENCOUNTER → 2022-09-23 07:48 | Outpatient (CLI) | payer OTHER, SELFPAY ==
[2022-09-23 08:49] LABS: Influenza A - CEPHEID Flu A NEGATIVE (NEGATIVE); Influenza B - CEPHEID Flu B NEGATIVE (NEGATIVE); Respiratory Syncytial Virus Negative (Negative)
[2022-09-23 12:09] LABS: COVID-19 CEPHEID 4-PLEX PCR Negative (Negative)
== END ==
PROVIDERS: Family Provider Family Medicine; PCP Nurse Practitioner; Visit Provider Nurse Practitioner Family
DX: R09.81 Nasal congestion (principal)
CPT/HCPCS: 0241U

== ENCOUNTER → 2023-01-06 08:41 | Outpatient (CLI) | payer OTHER, SELFPAY ==
[2023-01-06 10:16] LABS: Hematocrit 39.2 % (36-46); Mean Corpuscular HGB Conc 33.1 % (30-36); Mean Corpuscular Hemoglobin 28.2 PG (26-34); Mean Corpuscular Volume 85.1 fL (80-100); Platelet Count 266 X10^3/uL (150-400); Red Blood Cell Count 4.61 X10^6/uL (4.0-5.2); Red Cell Distribution Width 14.6 % (11.6-14.8); White Blood Cell Count 4.2 X10^3/uL (4.5-11.0)
[2023-01-06 10:41] LABS: Alanine Aminotransferase 13 IU/L (<35); Albumin 4.1 g/dL (3.5-5.0); Albumin Globulin Ratio 1.3 (1.0-2.8); Alkaline Phosphatase 68 U/L (38-126); Aspartate Aminotransferase 18 IU/L (14-36); BUN Creatinine Ratio 21.4 (6-22); Bilirubin Total 0.7 mg/dL (0.2-1.3); Blood Urea Nitrogen 12 mg/dL (7-17); Calcium 8.6 mg/dL (8.4-10.2); Carbon Dioxide 27 mmol/L (22-32); Chloride 102 mmol/L (98-107); Cholesterol 193 mg/dL (140-199); Estimated Glomerular Filt Rate > 60 mL/min (>60); Globulin 3.2 g/dL (1.7-4.1); Glucose 86 mg/dL (70-100); HEMOLYSIS < 15 (0-50); Potassium 3.5 mmol/L (3.4-5.1); Sodium 136 mmol/L (137-145); Total Protein 7.3 g/dL (6.3-8.2)
[2023-01-06 18:16] LABS: HIV 1 & 2 Ab/Ag 4th Gen Combo NEGATIVE (NEGATIVE); Hep C Virus Ab w/Reflex Quant NEGATIVE s/c (NEGATIVE)
== END ==
PROVIDERS: Family Provider Family Medicine; PCP Nurse Practitioner; Referring Provider Nurse Practitioner; Visit Provider Nurse Practitioner
DX: Z00.00 Encounter for general adult medical examination without abnormal findings (principal); Z11.4 Encounter for screening for human immunodeficiency virus [HIV]; Z11.59 Encounter for screening for other viral diseases
CPT/HCPCS: 36415; 80053; 82465; 85027; 86803; 87389

== ENCOUNTER → 2023-08-25 07:48 | Outpatient (CLI) | payer OTHER, SELFPAY ==
--- NOTE | 2023-08-25 | DI.MG.S_ITS ---
BILATERAL DIGITAL SCREENING MAMMOGRAM 3D/2D WITH CAD: 08/25/2023 CLINICAL: Routine screening. Family history of breast cancer. Comparison is made to exams dated: 08/15/2022 mammogram, 08/23/2021 mammogram, 07/26/2021 mammogram, 05/10/2016 mammogram, and 08/27/2022 [facility]. Both breasts are heterogeneously dense, which may obscure small masses (category c / 51-75% glandular tissue). Current study was also evaluated with a Computer Aided Detection (CAD) system. There are benign cysts in the left breast. There also is a biopsy clip in the right breast. No significant masses, calcifications, or other findings are seen in either breast. There has been no significant interval change. IMPRESSION: BENIGN There is no mammographic evidence of malignancy. A 1 year screening mammogram is recommended. Based on the Tyrer Cuzick model (a risk assessment model) the patient's lifetime risk is 10.9% and her 10 year risk is 2.6%. According to the ACR, ACS, and NCCN guidelines, an annual breast MRI exam along with mammogram is recommended if the patient's lifetime risk is 20% or greater. This exam was interpreted at Station ID: [id number]. NOTE: For mammograms, a report in lay terms will be sent to the patient. Approximately 15% of breast malignancies will not be visualized mammographically. In the management of a palpable breast mass, a negative mammogram must not discourage biopsy of a clinically suspicious lesion. Electronically Signed By: Nicolas holbrook/kerry:08/25/2023 08:29:14 letter sent: Normal Exam ACR BI-RADS Category 2: Benign Finding(s) 3342F
== END ==
PROVIDERS: Family Provider Family Medicine; PCP Nurse Practitioner; Referring Provider Nurse Practitioner; Visit Provider Nurse Practitioner
DX: Z12.31 Encounter for screening mammogram for malignant neoplasm of breast (principal); Z80.3 Family history of malignant neoplasm of breast
CPT/HCPCS: 77063; 77067

== ENCOUNTER 2023-10-14 06:41 | Day surgery (SDC) | payer OTHER, SELFPAY ==
[2023-10-14 07:02] VITALS: BP 118/78; PULSE 107; RESP 18; TEMP 36.9; O2SAT 98
[2023-10-14] MEDS: LACTATED RINGERS 1,000 ML 42 ML IV (07:20)
--- NOTE | 2023-10-14 07:27 | P.HP_ITS ---
History of Present Illness History of Present Illness Date Patient Seen: 10/14/23 Time Patient Seen: 07:28 Chief complaint: [facility] [place] Narrative: 48-year-old woman here routine screening colonoscopy. No previous colonoscopy. No family history of intestinal malignancy. No abdominal concerns today including but not limited to new abdominal pain, unintentional weight loss, blood per rectum. [facility] Medical History Cyst of right breast Breast calcification, right Screening for breast cancer Cervical cancer screening Vaginal delivery Tachycardia Surgical History History of oral surgery History of oral surgery Family History Father Age: 73 Diabetes mellitus High cholesterol Bipolar affective disorder, remission status unspecified Mental health problem Grandfather Prostate cancer Grandmother Essential hypertension, hypertension with unspecified goal Grandfather Diabetes mellitus Bipolar 1 disorder Sister Age: 52 Bipolar 1 disorder Grandmother History of heart disease Stroke Social History household members: family Smoking Status: Never smoker alcohol intake: current Meds Home Medications and Allergies Home Medications Medication Instructions Recorded Confirmed Type Multivitamins 1 tab PO .qd 12/31/22 History acyclovir 400 mg tablet 400 mg PO TID 7 days #21 tabs 12/31/22 12/31/22 Rx acyclovir 800 mg tablet 800 mg PO TID #30 tabs 12/31/22 10/14/23 Rx sodium,potassium,mag sulfates 17.5 See Rx Instructions PO .COMPLEX 08/22/23 Rx gram-3.13 gram-1.6 gram oral soln #354 mL (Suprep Bowel Prep Kit) Allergies Allergy/AdvReac Type Severity Reaction Status Date / Time No Known Drug Allergies Allergy Verified 10/14/23 06:57 Exam Vital Signs (past 8 hours): - 10/14/23 07:02 Temperature 98.5 F Pulse Rate 107 H Respiratory Rate 18 Blood Pressure 118/78 Pulse Oximetry 98 Oxygen Delivery Method Room Air Oxygen Delivery Method Room Air Narrative Exam Narrative: General adult woman alert oriented no acute distress Chest nonlabored respiration Extremities warm well perfused Assessment & Plan Assessment & Plan narrative: The patient requires colorectal screening and colonoscopy is recommended. Technical details were discussed. Risks, benefits, alternatives explained. Risks including but not limited to myocardial infarction, aspiration, bleeding, pain, missed lesion, incomplete examination, need for further radiographic studies, colonic perforation, and need for major abdominal surgery were discuss ed. All questions were answered to their satisfaction, and they are in agreement with this plan.
[2023-10-14 07:59] VITALS: BP 100/66; PULSE 97; RESP 18; TEMP 36.4; O2SAT 18
[2023-10-14 08:04] VITALS: BP 110/72; PULSE 102; RESP 18; O2SAT 100
--- NOTE | 2023-10-14 08:06 | P.OP.COLON_ITS ---
Operative Date/Time/Diagnoses Date of procedure: 10/14/23 Time of procedure: 08:06 Pre-op diagnosis: Colorectal screening Procedure & Clinicians Study performed: Colonoscopy Same procedure as scheduled: Yes Indications: Colorectal screening Surgeon: Hernesto Obrien Procedure Notes Procedure in detail: The history and physical was performed/updated and the patient is ASA class is 1. The procedure was discussed in detail with the patient. Potential risks complications including infection, bleeding, missed diagnosis, perforation, need for surgery, and were explained. Their questions were answered and informed consent was obtained. Patient was brought to the procedure room and placed standard monitoring equipment. The patient's vital signs were monitored continuously throughout the entire procedure. Prior to starting time-out was performed. The patient was placed in the left lateral recumbent position. Procedural sedation was administered by anesthesia. Examination began with a thorough inspection of the perianal area there was no evidence of fissures, fistulae, external hemorrhoids or cutaneous malignancy. The colonoscopy scope was then placed into the anal canal and was advanced to the cecum, which was identified by the ileocecal valve , the appendiceal orifice and the confluence of the taenia. The scope was then slowly withdrawn examining colon thoroughly in all directions, irrigating it of any residual stool. The scope was retroflexed within the rectum The patient tolerated the procedure well. They will be discharged once criteria are met. The prep was of good/excellent quality. The withdrawl time was 6 minutes. FINDINGS * Normal healthy colon. * No masses polyps or inflammation * Grade 1 internal hemorrhoids Specimen(s): none sent Impression: Normal healthy colon Post-procedure Recommendations: Colonoscopy in 10 years and High fiber diet Disposition: same day surgery
[2023-10-14 08:09] VITALS: BP 108/71; PULSE 90; RESP 16; O2SAT 100
[2023-10-14 08:15] VITALS: BP 114/86; PULSE 94; RESP 16; TEMP 36.5; O2SAT 100
== END 2023-10-14 08:20 | disposition home or self-care (01) ==
PROVIDERS: Family Provider Family Medicine; PCP Nurse Practitioner; Referring Provider Surgery; Visit Provider Surgery
PROC: 0DJD8ZZ Inspection of Lower Intestinal Tract, Via Natural or Artificial Opening Endoscopic (ICD-10-PCS; CPT 45378; principal; 2023-10-14 07:45)
DX: Z12.11 Encounter for screening for malignant neoplasm of colon (principal); K64.0 First degree hemorrhoids
CPT/HCPCS: 45378; J2704

== ENCOUNTER → 2024-04-25 11:39 | Outpatient (CLI) | payer OTHER, SELFPAY | PROVIDERS: Family Provider Family Medicine; PCP Nurse Practitioner; Visit Provider Physician Assistant Surgical | DX: R10.9 Unspecified abdominal pain (principal); N94.9 Unspecified condition associated with female genital organs and menstrual cycle | CPT/HCPCS: 87086; 87210 ==

== ENCOUNTER → 2024-06-04 06:55 | Outpatient (CLI) | payer OTHER, SELFPAY ==
[2024-06-04 07:51] LABS: Add Manual Diff / Slide Review NO; Basophils Absolute Auto 100 /uL (0-100); Basophils Percent Auto 1.1 % (0-2); Eosinophils Absolute Auto 100 /uL (0-450); Eosinophils Percent Auto 2.1 % (2-4); Hematocrit 37.9 % (36-46); Hemoglobin 12.8 g/dL (12.0-16.0); Lymphocytes Absolute Auto 1400 /uL (1100-4500); Lymphocytes Percent Auto 27.5 % (25-40); Mean Corpuscular HGB Conc 33.7 % (30-36); Mean Corpuscular Hemoglobin 28.9 PG (26-34); Mean Corpuscular Volume 85.8 fL (80-100); Monocytes Absolute Auto 300 /uL (0-900); Monocytes Percent Auto 6.7 % (3-14); Neutrophils Absolute Auto 3300 /uL (1500-7000); Neutrophils Percent Auto 62.6 % (50-75); Platelet Count 315 X10^3/uL (150-400); Red Blood Cell Count 4.42 X10^6/uL (4.0-5.2); Red Cell Distribution Width 13.6 % (11.6-14.8); White Blood Cell Count 5.2 X10^3/uL (4.5-11.0)
[2024-06-04 08:21] LABS: Alanine Aminotransferase 11 IU/L (<35); Albumin Globulin Ratio 1.4 (1.0-2.8); Alkaline Phosphatase 69 U/L (38-126); Aspartate Aminotransferase 18 IU/L (14-36); BUN Creatinine Ratio 26.3 (6-22); Bilirubin Total 0.8 mg/dL (0.2-1.3); Blood Urea Nitrogen 15 mg/dL (7-17); Calcium 9.3 mg/dL (8.4-10.2); Carbon Dioxide 26 mmol/L (22-32); Chloride 106 mmol/L (98-107); Cholesterol 184 mg/dL (140-199); Estimated Glomerular Filt Rate > 60 mL/min (>60); Globulin 2.9 g/dL (1.7-4.1); Glucose 87 mg/dL (70-100); HDL Cholesterol 76 mg/dL (40-60); HEMOLYSIS < 15 (0-50); LDL Cholesterol Calculated 94 mg/dL (<100); Potassium 4.1 mmol/L (3.4-5.1); Sodium 137 mmol/L (137-145); Total Protein 6.9 g/dL (6.3-8.2); Triglycerides 71 mg/dL (35-150)
[2024-06-04 08:36] LABS: Free T3, Triiodothyronine Free 3.59 pg/mL (2.77-5.27); Free T4, Direct Thyroxine 1.21 ng/dL (0.78-2.19)
[2024-06-04 08:49] LABS: Thyroid Stimulating Hormone 1.25 uIU/mL (0.47-4.68)
[2024-06-04 09:26] LABS: Appearance Urine UA CLEAR; Bilirubin Urine UA NEGATIVE (NEGATIVE); Color Urine UA YELLOW; Glucose Urine UA NEGATIVE (Negative); Ketones Urine UA NEGATIVE (NEGATIVE); Leukocyte Esterase Urine UA NEGATIVE (NEGATIVE); Nitrite Urine UA NEGATIVE (Negative); Occult Blood Urine UA TRACE-INTACT (Negative); Protein Urine UA NEGATIVE (Negative); Specific Gravity Urine UA 1.015 (1.000-1.035); Urobilinogen Urine UA 0.2 E.U./dL (0.2)
[2024-06-04 09:29] LABS: pH Urine UA 7.5 (4.5-8.0)
[2024-06-04 09:44] LABS: Bacteria Urine Moderate (10-30); Culture Indicated Urine Cult Not Indicated; RBC Urine 1-5/HPF (0-5/HPF); Squamous Epithelial Cell Urine 10-30 /HPF (0-5/HPF); Urine Volume 10mL (spun); WBC Urine 1-5/HPF (0-5/HPF)
[2024-06-04 09:57] LABS: Creatinine Urine Random 93.81 mg/dL
[2024-06-04 10:13] LABS: Microalbumin Urine Random < 0.6 mg/dL (0-1.6)
== END ==
PROVIDERS: Family Provider Family Medicine; PCP Nurse Practitioner; Referring Provider Nurse Practitioner; Visit Provider Nurse Practitioner
DX: Z00.00 Encounter for general adult medical examination without abnormal findings (principal); R30.0 Dysuria
CPT/HCPCS: 36415; 80053; 80061; 81001; 82043; 82570; 84439; 84443; 84481; 85025

== ENCOUNTER → 2024-08-30 07:36 | Outpatient (CLI) | payer OTHER, SELFPAY ==
--- NOTE | 2024-08-30 07:37 | DI.MG.S_ITS ---
BILATERAL DIGITAL SCREENING MAMMOGRAM 3D/2D WITH CAD: 08/30/2024 CLINICAL: Routine screening. Family history of breast cancer. Comparison is made to exams dated: 08/25/2023 mammogram, 08/15/2022 mammogram, 08/23/2021 mammogram, and 07/26/2021 mammogram - [facility]. The breasts are heterogeneously dense, which may obscure small masses (category c / 51-75% glandular tissue). Current study was also evaluated with a Computer Aided Detection (CAD) system. There are multiple bilateral oval and round circumscribed masses, waxing and waning in size. There is a biopsy clip in the right breast. No other significant masses, calcifications, or other findings are seen in either breast. IMPRESSION: BENIGN Multiple bilateral benign appearing masses, waxing and waning in size. No mammographic evidence of malignancy. A 1 year screening mammogram is recommended. Based on the Tyrer Cuzick model (a risk assessment model) the patient's lifetime risk is 10.9% and her 10 year risk is 2.7%. According to the ACR, ACS, and NCCN guidelines, an annual breast MRI exam along with mammogram is recommended if the patient's lifetime risk is 20% or greater. This exam was interpreted at Station ID: [id number]. NOTE: For mammograms, a report in lay terms will be sent to the patient. Approximately 15% of breast malignancies will not be visualized mammographically. In the management of a palpable breast mass, a negative mammogram must not discourage biopsy of a clinically suspicious lesion. Electronically Signed By: Chitra Mckeon M.D., Ph.D. eb/:08/31/2024 09:49:58 letter sent: Normal Exam ACR BI-RADS Category 2: Benign
== END ==
LOC: MAMMO 07:36
PROVIDERS: PCP Nurse Practitioner; Referring Provider Nurse Practitioner; Visit Provider Nurse Practitioner
DX: Z12.31 Encounter for screening mammogram for malignant neoplasm of breast (principal); Z80.3 Family history of malignant neoplasm of breast; R92.333 Mammographic heterogeneous density, bilateral breasts
CPT/HCPCS: 77063; 77067

== ENCOUNTER → 2025-09-17 07:45 | Outpatient (CLI) | payer OTHER, SELFPAY ==
--- NOTE | 2025-09-17 07:47 | DI.MG.S_ITS ---
MM screening mammo BI: 09/17/2025. BI-RADS: 2 CLINICAL: 50-year old female for bilateral screening mammogram. Tyrer-Cuzick lifetime risk of 8.7%. No personal or first-degree family history of breast cancer. The patient had a prior right breast biopsy. PRIOR EXAMS 08/30/2024, 08/25/2023, 08/27/2022, 08/15/2022. MAMMOGRAPHY TECHNIQUE: 2D and 3D (tomosynthesis) digital mammographic views obtained, with additional images as needed for full coverage. Current study was also evaluated with a Computer Aided Detection (CAD) system. DENSITY C. The breasts are heterogeneously dense, which may obscure small masses. MAMMOGRAPHY FINDINGS Right: Biopsy marker present on the right. There are no suspicious masses, calcifications, or other findings in the breast. Left: No suspicious mass, asymmetry, microcalcification, or other abnormality seen. IMPRESSION: Right * No evidence of malignancy with benign findings. Left * No evidence of malignancy. RECOMMENDATIONS Bilateral * Annual screening mammography. OVERALL ASSESSMENT CATEGORY BI-RADS-2: Benign. The [employer] recommends annual screening mammography beginning at age 40 for women with average risk of breast cancer. ELECTRONICALLY SIGNED: Nader Ortez M.D. on 09/21/2025 at 11:22:32 AM PT Interpreting Station ID: [id number]
== END ==
LOC: MAMMO 07:46
PROVIDERS: PCP Family Medicine; Referring Provider Family Medicine; Visit Provider Family Medicine
DX: Z12.31 Encounter for screening mammogram for malignant neoplasm of breast (principal); R92.333 Mammographic heterogeneous density, bilateral breasts
CPT/HCPCS: 77063; 77067